=== PATIENT | female | born 1985 ===

== ENCOUNTER 2017-06-10 16:55 | Inpatient (IN) | payer OTHER ==
[2017-06-10 17:47] VITALS: BMI 28.1
[2017-06-10] MEDS: Lactated Ringer's 1,000 ML IV SCH ×2 (18:00→19:00)
[2017-06-10 18:16] LABS: BASO # 0.1 K/uL (0.0-0.2); BASO % 0.6 % (0.0-2.0); EOS # 0.1 K/uL (0.0-0.7); EOS % 1.5 % (0.0-4.0); LYMPH # 1.7 K/uL (1.0-4.3); LYMPH % 19.4 % (20.0-40.0); MEAN CELL VOLUME 85.1 fl (81.0-99.0); MEAN CORPUSCULAR HEMOGLOBIN 27.7 pg (27.0-31.0); MEAN CORPUSCULAR HGB CONC 32.6 g/dL (33.0-37.0); MEAN PLATELET VOLUME 10.6 fl (7.2-11.7); MONO # 0.6 K/uL (0.0-0.8); MONO % 6.2 % (0.0-10.0); NEUT # 6.5 K/uL (1.8-7.0); NEUT % 72.3 % (50.0-75.0); NRBC % 0.1 % (0.0-0.0); RBC 3.98 Mil/uL (3.80-5.20); RED CELL DISTRIBUTION WIDTH 15.5 % (11.5-14.5)
--- NOTE | 2017-06-10 18:39 | OBADHP ---
Datetime: 06/10/2017 18:34 Admit Comment, IP Provider: Patient is a @ 39.5 wks with contractions, no leaking, scant ble eding, +FM. No antepartum issues, no medical problmes, x 2 previously. VE=4/80/-2 GGV=[id number] mod helio, +accels, variable decelerations and early TOCO = ctxning q 7-9 mins A/P 1. Patient in early labor, will admit to labor and delivery. IVF, CBC, Type and scren 2. CEFM and TOCO 3. patient would like epidural for pain Pelvic Type - PN: Adequate Extremities - PN: Normal Abdomen - PN: Normal Back - PN: Normal Breast - PN: Normal Lungs - PN: Normal Heart - PN: Normal Thyroid - PN: Normal Neurologic - PN: Normal HEENT - PN: Normal General - PN: Normal FHR - Baseline A Provider: 150 Membranes, Provider: Intact Contraction Comments Provider: Q 7-9 mins Vital Signs Provider: Reviewed; Within Normal Limits IP Chief Complaint: Uterine contractions NICHD Variability Prov Fetus A: Moderate 6-25bpm NICHD Accel Fetus A IP Provider: [id number] NICHD Decel Fetus A IP Provider: Early; Variable Dilatation, Provider: 4 Effacement, Provider: 80 Station, Provider: -2 Genitourinary Exam: Normal DTRs - PN: Normal IP Adm Impression: Term, intrauterine IP Admit Plan: Admit to unit
[2017-06-10] MEDS ORDERED: Bupivacaine HCl 0.25% PF (10 ml) Inj ONE (18:43)
[2017-06-10] MEDS ORDERED: Fentanyl/Bupivacaine HCl 250 ML EPI ONE (19:08)
[2017-06-10] MEDS ORDERED: Oxytocin 30 units/LR 500ML 30 U/500 ML BAG IV ONE (19:48)
[2017-06-10] MEDS ORDERED: Oxycodone/Acetaminophen 5/325 mg Tab PO PRN ×3 (20:51→22:59)
[2017-06-10] MEDS ORDERED: Benzocaine/Menthol SPRAY TOP PRN (20:51)
--- NOTE | 2017-06-10 21:10 | OBDS ---
MATERNAL INFORMATION Provider Comments: of live female over intact perineum, followed by shoulder and rest of atraumatically, 6lbs 8oz, 9/9, in NAZIA presentation with double nuchal cord loose, cord clampe d and cut, placed on mother's chest, cord blood was obtained, placenta delivered spontaneously , labial abrasion repaired with 3-0 vicryl, [id number] LABOR SUMMARY No. Babies in Womb: 1 MEMBRANES Membranes Rupture Method: Artificial Rupture of Membranes: 06/10/2017 19:20 Length of Rupture (hrs): 1.33 Amniotic Fluid Color: Clear Amniotic Fluid Amount: Small Amniotic Fluid Odor: Normal STAGES OF LABOR Stage 3 hrs: 0 Stage 3 min: 3 BABY A INFORMATION Delivery Date/Time: 06/10/2017 20:40 Method of Delivery: Vaginal Born in Route : No : N/A Forceps: N/A Vacuum Extraction: N/A Shoulder Dystocia : No SHOULDER DYSTOCIA BABY A Infant Delivery Date/Time: 06/10/2017 20:40 PRESENTATION/POSITION BABY A Presentation: Cephalic PLACENTA INFORMATION BABY A Placenta Delivery Time : 06/10/2017 20:43 Placenta Method of Delivery: Spontaneous Placenta Status: Delivered INFANT INFORMATION BABY A Gestational Age at Delivery: 39.5 Gestational Status: Term Outcome : Liveborn Condition : Stable Sex: Female IDENTIFICATION/MEDS BABY A ID Band Number: [id number] ID Band Location: Left Leg; Left Arm WEIGHT/LENGTH BABY A Infant Birthweight (gms): 2970 Weight (lb): 6 Weight (oz): 9 CORD INFORMATION BABY A Infant Suction: Mouth; Nose
[2017-06-11 06:29] LABS: HEMOGLOBIN 9.1 g/dL (12.0-16.0); MEAN CELL VOLUME 85.8 fl (81.0-99.0); MEAN CORPUSCULAR HEMOGLOBIN 27.7 pg (27.0-31.0); MEAN CORPUSCULAR HGB CONC 32.3 g/dL (33.0-37.0); RBC 3.3 Mil/uL (3.80-5.20); RED CELL DISTRIBUTION WIDTH 15.4 % (11.5-14.5); WHITE BLOOD COUNT 12.5 K/uL (4.8-10.8)
[2017-06-11] MEDS: Oxycodone/Acetaminophen 5/325 mg Tab PO PRN ×4 (07:28→22:35)
--- NOTE | 2017-06-11 07:35 | OBPPN ---
Datetime: 06/11/2017 07:30 PP Pain Prov: Within normal limits PP Abdomen/Uterus Prov: Normal PP Lochia Prov: Normal PP Extremities Prov: Normal PP Progress Prov: Not Applicable PP Impression Prov: Normal progression PP Plan Prov: Continue present management PP Progress Note Prov: PPD 1 s/p , doing well, bottle feeding Pt c/o cramps, last motrin at 4am, pt just received percocet Continue current care Vital Signs Provider PP: Reviewed; Within Normal Limits
[2017-06-11] MEDS ORDERED: Multivitamin With Minerals Tab PO SCH (09:00)
[2017-06-11] MEDS: Multivitamin With Minerals Tab PO SCH (09:12)
[2017-06-11] MEDS ORDERED: Pneumococcal 23-Valent Vaccine IM ONE (15:32)
[2017-06-11] MEDS: Benzocaine/Menthol SPRAY TOP PRN (22:36)
[2017-06-12] MEDS: Oxycodone/Acetaminophen 5/325 mg Tab PO PRN (05:25)
[2017-06-12] MEDS: Multivitamin With Minerals Tab PO SCH (08:02)
[2017-06-12] MEDS: Benzocaine/Menthol SPRAY TOP PRN (08:04)
--- NOTE | 2017-06-12 11:25 | OBPPN ---
Datetime: 06/12/2017 11:22 PP Pain Prov: Within normal limits PP Nausea Prov: Denies PP Flatus Prov: Yes PP BM Prov: Yes PP Breasts Prov: Not Done PP Heart Prov: Normal PP Lungs Prov: Normal PP Abdomen/Uterus Prov: Normal PP Lochia Prov: Normal PP Vulva/Perineum Prov: Not Done PP CVA Tenderness Prov: Normal PP Extremities Prov: Normal PP Progress Prov: Normal PP Impression Prov: Normal progression PP Plan Prov: Discharge PP Progress Note Prov: She feels fine and ready to go home A: S/P day 2 anemia - asymptomatic PLAN: dischasge home and follow up in 6w Vital Signs Provider PP: Reviewed; Within Normal Limits
--- NOTE | 2017-06-12 11:25 | OBDCSUM ---
Datetime: 06/12/2017 09:11 Discharged to, Provider: Home Follow up at, Provider: [facility] Disch Instr Activity: Normal activity Disch Instr Diet: Regular Discharge Instructions, Provider: Routine instructions given Discharge Diagnosis, Provider: Term Delivered Discharge Time: 06/12/2017 12:00 Follow up in weeks, Provider: 6 Weeks Disch Referrals: None Contraception discussed, Prov: Yes Disch Activity Restrictions: No sexual activity; Nothing in vagina - [place], tampons, douche Contraception after Delivery: IUD; Tubal Ligation; Vasectomy
[2017-06-12 19:09] VITALS: BP 106/74; PULSE 86; RESP 20; TEMP 98.5; O2SAT 100
== END 2017-06-12 15:00 | disposition home or self-care (01) | DRG 373 ==
LOC: H.EROB2 16:55 → H.L&D 17:47 → H.OB/GYN 22:47
PROVIDERS: ADMIT Obstetrics & Gynecology; ATTEND Obstetrics & Gynecology
PROC: 10E0XZZ Delivery of Products of Conception, External Approach (ICD-10-PCS; principal; 2017-06-10)
PROC: 4A1HXCZ Monitoring of Products of Conception, Cardiac Rate, External Approach (ICD-10-PCS; 2017-06-10)
PROC: 0HQ9XZZ Repair Perineum Skin, External Approach (ICD-10-PCS; 2017-06-10)
DX: O76 Abnormality in fetal heart rate and rhythm complicating labor and delivery (principal); O69.81X0 Labor and delivery complicated by cord around neck, without compression, not applicable or unspecified; Z37.0 Single live birth; O71.89 Other specified obstetric trauma; Z3A.39 39 weeks gestation of pregnancy; O70.0 First degree perineal laceration during delivery